=== PATIENT | female | born 1965 | race African-American/Black ===

== ENCOUNTER 2024-07-02 08:18 | Observation (INO) | payer BC, OTHER ==
[~2024-07-02] VITALS: Ht 167.6 cm; Wt 117.0 kg
[~2024-07-02 08:18] MED LIST: LISINOPRIL10 MG PO; METFORMIN HCL500 MG PO; OZEMPIC0.25 MG/02 SQ; ROPIVACAINE 246.25 MG, EPINEPHRINE HCL 1:1000 1ML 0.5 MG, CLONIDINE HCL 0.08 MG, KETORO... INJ ONE
[2024-07-02] MEDS ORDERED: ABILIFY15 MG PO (08:58)
[2024-07-02] MEDS ORDERED: WELLBUTRIN XL150 MG PO (08:58)
[2024-07-02] MEDS: CELECOXIB 200 MG CAP ONE (09:17)
[2024-07-02] MEDS: DEXAMETHASONE SOD PHOS 10 MG/1 ML VIAL ONE (09:18)
[2024-07-02] MEDS: GABAPENTIN 300 MG CAP ONE (09:18)
[2024-07-02] MEDS: LACTATED RINGER'S 1,000 ML ONE (09:18)
[2024-07-02] MEDS: CEFAZOLIN SODIUM 2 GM ONE (09:18)
[2024-07-02] MEDS ORDERED: Vancomycin IV 500 MG ONE (10:13)
[2024-07-02] MEDS ORDERED: SODIUM CHLORIDE 0.9% 500ML 500 ML ONE (10:13)
[2024-07-02] MEDS ORDERED: TRANEXAMIC ACID 20 ML ONE (10:14)
[2024-07-02] MEDS ORDERED: FENTANYL CITRATE/PF 100MCG/2 ML INJ ONE (10:59)
[2024-07-02] MEDS ORDERED: ROPIVACAINE 0.5% 5 MG/ML 30 ML SDV ONE (12:13)
[2024-07-02] MEDS ORDERED: DEXAMETHASONE SOD PHOS 10 MG/1 ML VIAL ONE (12:13)
[2024-07-02] MEDS ORDERED: DOCUSATE SODIUM 100 MG CAP PO PRN (12:15)
[2024-07-02] MEDS ORDERED: DIPHENHYDRAMINE HCL INJ 50 MG/ML VIAL IV PRN ×2 (12:15)
[2024-07-02] MEDS ORDERED: HYDROCODONE/APAP 5MG-325MG TAB PO PRN (12:15)
[2024-07-02] MEDS ORDERED: ONDANSETRON HCL INJ 2MG/ML 2ML 2 MG/ML VIAL IV PRN ×2 (12:15)
[2024-07-02] MEDS ORDERED: HYDROCODONE/APAP 7.5MG-325MG 1 EA TAB PO PRN ×2 (12:15)
[2024-07-02] MEDS ORDERED: CELECOXIB 100 MG CAP PO SCH (17:00)
[2024-07-02] MEDS ORDERED: ASPIRIN 325 MG TAB PO SCH (17:00)
[2024-07-02] MEDS ORDERED: NEOSTIGMINE 1 MG/ML 10ML VIAL ONE (17:29)
[2024-07-02] MEDS ORDERED: ROCURONIUM BROMIDE 10 MG/ML 5ML VIAL IV ONE (17:29)
[2024-07-02] MEDS ORDERED: PROPOFOL IV EMULSION 10 MG/ML 20 ML VIAL ONE (17:29)
[2024-07-02] MEDS ORDERED: SEVOFLURANE INHAL SOLN 250 ML PEN BTL ONE (17:29)
[2024-07-02] MEDS ORDERED: LIDOCAINE HCL 2% LOCAL INJ 5 ML SDV VIAL INJ ONE (17:29)
[2024-07-02] MEDS ORDERED: DEXAMETHASONE SOD PHOS INJ 4 MG/ML SDV ONE (17:29)
[2024-07-02] MEDS ORDERED: ONDANSETRON HCL INJ 2MG/ML 2ML 2 MG/ML VIAL ONE (17:29)
[2024-07-02] MEDS ORDERED: GLYCOPYRROLATE INJ 0.2 MG/ML VIAL ONE (17:29)
[2024-07-02 20:00] VITALS: BP 146/84; PULSE 83; RESP 20; TEMP 97.3; O2SAT 97
[2024-07-02 20:40] VITALS: BP 146/84; PULSE 83; RESP 20; TEMP 97.3; O2SAT 97
[2024-07-02] MEDS: ASPIRIN 325 MG TAB PO SCH (20:40)
[2024-07-02] MEDS: CELECOXIB 200 MG CAP PO SCH (20:40)
[2024-07-02] MEDS: SODIUM CHLORIDE 0.9% 1000ML 1,000 ML IV SCH (20:41)
[2024-07-02] MEDS: HYDROCODONE/APAP 5MG-325MG TAB PO PRN (23:46)
[2024-07-03 00:17] VITALS: BP 143/84; PULSE 77; RESP 17; TEMP 97.9; O2SAT 97
[2024-07-03 05:36] LABS: HEMATOCRIT 40.9 % (34.2-44.1); HEMOGLOBIN 13.1 g/dL (12.0-16.0)
[2024-07-03 07:25] VITALS: BP 138/95; PULSE 84; RESP 20; TEMP 97.7; O2SAT 98
[2024-07-03 08:31] VITALS: BP 138/95; PULSE 84; RESP 20; TEMP 97.7; O2SAT 98
[2024-07-03 08:32] VITALS: PULSE 83; RESP 20; O2SAT 97
[2024-07-03] MEDS ORDERED: ARIPIPRAZOLE PO SCH (09:00)
[2024-07-03] MEDS: ARIPIPRAZOLE 5 MG TABLET PO SCH (09:07)
[2024-07-03] MEDS: BUPROPION HCL 150 MG TABCR PO SCH (09:07)
[2024-07-03] MEDS ORDERED: ACETAMINOPHEN 1000 MG/100 ML IV PRN ×2 (12:15)
[2024-07-03 12:33] VITALS: BP 140/86; PULSE 85; RESP 20; TEMP 98.6; O2SAT 96
[2024-07-03] MEDS ORDERED: ASPIRIN81 MG PO (12:59)
[2024-07-03 16:37] VITALS: BP 136/108; PULSE 88; RESP 20; TEMP 97.8; O2SAT 100
== END 2024-07-03 16:20 | disposition home health service (06) ==
LOC: OR 08:18 → PACU V 16:10 → MED/SURG 18:38
PROVIDERS: ADMIT Specialist; ATTEND Specialist
DX: M17.11 Unilateral primary osteoarthritis, right knee (principal); I10 Essential (primary) hypertension; E11.9 Type 2 diabetes mellitus without complications; Z79.85 Long-term (current) use of injectable non-insulin antidiabetic drugs; E66.9 Obesity, unspecified; Z68.41 Body mass index [BMI] 40.0-44.9, adult; F41.9 Anxiety disorder, unspecified; F17.210 Nicotine dependence, cigarettes, uncomplicated; Z01.812 Encounter for preprocedural laboratory examination; Z79.899 Other long term (current) drug therapy; Z79.1 Long term (current) use of non-steroidal anti-inflammatories (NSAID)
CPT/HCPCS: 27447; 36415 ×2; 73560; 82948 ×2; 85014; 85018; 86850; 86900; 94799 ×2; 97110 ×2; 97116 ×2; 97162; 97530 ×3; 99252; C1713 ×2; C1776 ×3; G0378 ×2; J0171; J0690 ×3; J1100 ×2; J1885; J2003; J2405; J2704; J2710; J2795; J3010; J3370; J7030 ×2; J7040; J7121

== ENCOUNTER → 2025-05-13 | Day surgery (SDC) | payer BC, OTHER ==
[2025-05-10 10:00] LABS: BASOPHILS % 0.4 % (0.0-1.0); EOSINOPHILS % 1.1 % (0.0-6.0); LYMPHOCYTES % 29.3 % (18.0-39.1); MONOCYTES % 8.4 % (4.4-11.3); NEUTROPHILS % 59.3 % (38.7-80.0); RED CELL DISTRIBUTION WIDTH 15.3 % (11.7-14.4)
[~2025-05-13] MED LIST changes: +ABILIFY15 MG PO; +ACETAMINOPHEN 1000 MG/100 ML 100 ML IV ONE; +ACETAMINOPHEN 1000 MG/100 ML IV PRN; +ASPIRIN 325 MG TAB PO SCH; +ASPIRIN81 MG PO; +CELECOXIB 100 MG CAP PO SCH; +DIPHENHYDRAMINE HCL INJ 50 MG/ML VIAL IV PRN; +DOCUSATE SODIUM 100 MG CAP PO PRN; +FAMOTIDINE 20 MG/2 ML VIAL IV ONE; +FENTANYL CITRATE/PF 100MCG/2 ML INJ ONE; +HYDROCODONE/APAP 5MG-325MG TAB PO PRN; +HYDROCODONE/APAP 7.5MG-325MG 1 EA TAB PO PRN; +LIDOCAINE HCL 2% LOCAL INJ 5 ML SDV VIAL INJ ONE; +MIDAZOLAM HCL 2 MG/2 ML VIAL ONE; +ONDANSETRON HCL INJ 2MG/ML 2ML 2 MG/ML VIAL IV PRN; +ONDANSETRON HCL INJ 2MG/ML 2ML 2 MG/ML VIAL ONE; +PROPOFOL IV EMULSION 10 MG/ML 20 ML VIAL ONE; +ROCURONIUM BROMIDE 1 ML IV ONE; -ROPIVACAINE 246.25 MG, EPINEPHRINE HCL 1:1000 1ML 0.5 MG, CLONIDINE HCL 0.08 MG, KETORO... INJ ONE; +ROPIVACAINE/EPI/CLONIDINE/KET 50 ML SYRINGE INJ ONE; +SEVOFLURANE INHAL SOLN 250 ML PEN BTL ONE; +SODIUM CHLORIDE 0.9% 1000ML 1,000 ML IV SCH; +WELLBUTRIN XL150 MG PO
[2025-05-13] MEDS: CELECOXIB 200 MG CAP ONE (06:15)
[2025-05-13] MEDS: GABAPENTIN 300 MG CAP ONE (06:16)
[2025-05-13] MEDS: LACTATED RINGER'S 1,000 ML ONE (06:16)
[2025-05-13] MEDS: CEFAZOLIN SODIUM 2 GM ONE (06:16)
[2025-05-13] MEDS: DEXAMETHASONE SOD PHOS 10 MG/1 ML VIAL ONE (06:16)
[2025-05-13 07:27] LABS: EST GLOMERULAR FILTRATION RATE 60.0 ML/MIN (>=60)
[2025-05-13] MEDS: HYDROMORPHONE 1MG/1ML INJ ONE (09:12)
[2025-05-13] MEDS: HYDROCODONE/APAP 7.5MG-325MG 1 EA TAB ONE (11:35)
[2025-05-13] MEDS: KETOROLAC TROMETHAMINE 30 MG/ML VIAL ONE (11:35)
[2025-05-13 12:30] VITALS: BP 136/90; PULSE 76; RESP 16; O2SAT 100
== END | disposition home health service (06) ==
LOC: OR 05:30
PROVIDERS: ATTEND Specialist
DX: M17.12 Unilateral primary osteoarthritis, left knee (principal); Z96.651 Presence of right artificial knee joint; E11.9 Type 2 diabetes mellitus without complications; E66.01 Morbid (severe) obesity due to excess calories; Z71.82 Exercise counseling; F17.210 Nicotine dependence, cigarettes, uncomplicated; Z01.812 Encounter for preprocedural laboratory examination; Z79.899 Other long term (current) drug therapy; Z79.82 Long term (current) use of aspirin; Z79.84 Long term (current) use of oral hypoglycemic drugs; Z68.39 Body mass index [BMI] 39.0-39.9, adult; Z71.3 Dietary counseling and surveillance
CPT/HCPCS: 27447; 36415 ×2; 73560; 80048; 82948; 85025; 86850; 86900; 93005; 97110; 97116; 97161; C1713; C1776 ×3; J0131; J1100; J1171; J1308; J1885; J2003; J2250; J2405; J2704; J3010; J7121